=== PATIENT | male | born 1965 | race Caucasian/White ===

== ENCOUNTER 2017-03-30 07:27 | Emergency (ER) | payer MEDICARE ==
[2017-03-30 07:37] VITALS: RESP 20
[2017-03-30] MEDS ORDERED: KETOROLAC 60 MG/2 ML VIAL IM STA (07:52)
[2017-03-30] MEDS ORDERED: MORPHINE SULFATE 10 MG/ML SYRINGE IM STA (07:52)
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
--- NOTE | 2017-03-30 08:36 | XR ---
EXAMINATION TYPE: XR chest 2V DATE OF EXAM: 03/30/2017 8:30 AM COMPARISON: NONE HISTORY: Fall with subsequent left arm and rib pain. TECHNIQUE: Frontal and lateral views of the chest are obtained. FINDINGS: There is no focal air space opacity, pleural effusion, or pneumothorax seen. The cardiac silhouette size is within normal limits. There is no displaced fracture. IMPRESSION: 1. No acute cardiopulmonary process. 2. No displaced rib fracture visualized.
[2017-03-30 09:33] VITALS: BP 132/77; PULSE 84; TEMP 97.7
== END 2017-03-30 09:20 | disposition home or self-care (01) ==
LOC: EC 07:27
DX: R07.81 Pleurodynia (principal); I10 Essential (primary) hypertension; E78.5 Hyperlipidemia, unspecified; E11.9 Type 2 diabetes mellitus without complications; Z87.891 Personal history of nicotine dependence; Z79.84 Long term (current) use of oral hypoglycemic drugs; Z79.82 Long term (current) use of aspirin; Z79.899 Other long term (current) drug therapy; W17.89XA Other fall from one level to another, initial encounter
CPT/HCPCS: 71020; 99283; 96372 ×2; J2270; J1885

== ENCOUNTER 2017-06-03 17:00 | Emergency (ER) | payer OTHER, MEDICARE ==
[2017-06-03 17:12] VITALS: RESP 18
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
[2017-06-03 18:13] VITALS: BP 118/75; PULSE 82; TEMP 97.9
--- NOTE | 2017-06-03 18:15 | XR ---
Cervical spine HISTORY: Trauma and pain 4 views of the cervical spine Cervical vertebral bodies show preserved height, alignment, and bone mineralization. Prevertebral sof t tissues and disc spaces are maintained. Spondylolysis present at C6-7. C7-T1 not well seen. Carotid artery calcification suspected. IMPRESSION: No acute abnormalities evident, limitations at C7-T1.
--- NOTE | 2017-06-03 18:16 | XR ---
Left clavicle HISTORY: Trauma and pain 2 views of the left clavicle No comparisons Bone mineralization is maintained. Alignment is normal. Left lung apex as visualized is normal IMPRESSION: No fracture or dislocation.
--- NOTE | 2017-06-03 18:17 | XR ---
EXAMINATION TYPE: XR chest 2V DATE OF EXAM: 06/03/2017 COMPARISON: Prior chest x-ray 03/30/2017 HISTORY: Pain, trauma TECHNIQUE: Frontal and lateral views of the chest are obtained. FINDINGS: There is no focal air space opacity, pleural effusion, or pneumothorax seen. The cardiac silhouette size is within normal limits. The osseous structures are intact. IMPRESSION: No acute cardiopulmonary process.
== END 2017-06-03 19:00 | disposition home or self-care (01) ==
LOC: EC 17:00
DX: M54.2 Cervicalgia (principal); M25.512 Pain in left shoulder; E78.5 Hyperlipidemia, unspecified; I10 Essential (primary) hypertension; E11.9 Type 2 diabetes mellitus without complications; F32.9 Major depressive disorder, single episode, unspecified; F17.200 Nicotine dependence, unspecified, uncomplicated; Z79.84 Long term (current) use of oral hypoglycemic drugs; Z79.899 Other long term (current) drug therapy; V43.52XA Car driver injured in collision with other type car in traffic accident, initial encounter; Y92.410 Unspecified street and highway as the place of occurrence of the external cause; Y93.89 Activity, other specified
CPT/HCPCS: 71020; 72050; 99284

== ENCOUNTER 2018-02-23 10:43 | Observation (INO) | payer MEDICARE, OTHER ==
[2018-02-23 11:36] VITALS: RESP 16
[2018-02-23 11:46] VITALS: BMI 28.5
[2018-02-23] MEDS: KETOROLAC 30 MG/ML 1 ML VIAL IVP PRN ×2 (12:15→19:34)
[2018-02-23] MEDS: SODIUM CHLORIDE 0.9% 1,000 ML IV SCH (14:42)
[2018-02-23] MEDS: LINAGLIPTIN 5 MG TABLET PO SCH (14:51)
[2018-02-23] MEDS: LISINOPRIL 20 MG TAB PO SCH (14:51)
[2018-02-23] MEDS: MULTIVITAMINS, THERA 1 EACH TAB PO SCH (14:51)
[2018-02-23] MEDS: buPROPion XL 150 MG TAB.ER.24H PO SCH (14:51)
[2018-02-23] MEDS: ASPIRIN 81 MG PO SCH (14:51)
[2018-02-23 15:13] LABS: Basophils # (A) 0.1 k/uL (0-0.2); Basophils % (A) 1 %; Eosinophils # (A) 0.1 k/uL (0-0.7); Eosinophils % (A) 1 %; HCT 39.6 % (39.0-53.0); HGB 13.6 gm/dL (13.0-17.5); Lymphocytes # (A) 1.6 k/uL (1.0-4.8); Lymphocytes % (A) 12 %; MCH 30.4 pg (25.0-35.0); MCHC 34.5 g/dL (31.0-37.0); MCV 88.3 fL (80.0-100.0); Mean Platelet Volume 6.7; Monocytes # (A) 0.7 k/uL (0-1.0); Monocytes % (A) 6 %; Neutrophils # (A) 10.3 k/uL (1.3-7.7); Neutrophils % (A) 80 %; Platelet Count 270 k/uL (150-450); RBC 4.48 m/uL (4.30-5.90); RDW 12.3 % (11.5-15.5); WBC 12.9 k/uL (3.8-10.6)
[2018-02-23 15:23] LABS: ALT 46 U/L (21-72); AST 37 U/L (17-59); Albumin 3.9 g/dL (3.5-5.0); Alkaline Phosphatase 71 U/L (38-126); Anion Gap 11 mmol/L; Blood Urea Nitrogen 17 mg/dL (9-20); Calcium 9.5 mg/dL (8.4-10.2); Carbon Dioxide 24 mmol/L (22-30); Chloride 100 mmol/L (98-107); Glucose 303 mg/dL (74-99); Sodium 135 mmol/L (137-145); Total Bilirubin 0.5 mg/dL (0.2-1.3); Total Protein 6.3 g/dL (6.3-8.2)
[2018-02-23 16:45] LABS: Appearance,Urine Clear (Clear); Bacteria,Urine Rare /hpf; Bilirubin,Urine Negative (Negative); Blood,Urine Large (Negative); Color,Urine Yellow; Glucose,Urine (UA) 4+ (Negative); Hyaline Casts,Urine 9 /lpf (0-2); Ketones,Urine Trace (Negative); Leukocyte Esterase,Urine Negative (Negative); Mucus,Urine Few /hpf; Nitrite,Urine Negative (Negative); Protein,Urine 1+ (Negative); RBC,Urine >182 /hpf (0-5); Specific Gravity,Urine 1.017 (1.001-1.035); Squamous Epithelial Cell,Urine 1 /hpf (0-4); Urobilinogen,Urine <2.0 mg/dL (<2.0); WBC,Urine 19 /hpf (0-5)
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
[2018-02-23 17:26] LABS: Glucose,Whole Blood 241 mg/dL (75-99)
[2018-02-23] MEDS ORDERED: metFORMIN 500 MG TAB PO SCH (17:30)
[2018-02-23 20:14] LABS: Glucose,Whole Blood 265 mg/dL (75-99)
[2018-02-23] MEDS: metFORMIN 500 MG TAB PO SCH (20:33)
[2018-02-23] MEDS ORDERED: ATORVASTATIN 20 MG TAB PO SCH (21:00)
[2018-02-23 21:51] LABS: Hemoglobin A1C 8.8 % (4.0-6.0)
[2018-02-24] MEDS: SODIUM CHLORIDE 0.9% 1,000 ML IV SCH (02:53)
[2018-02-24] MEDS: KETOROLAC 30 MG/ML 1 ML VIAL IVP PRN (05:26)
[2018-02-24 06:41] LABS: Glucose,Whole Blood 189 mg/dL (75-99)
[2018-02-24 07:24] VITALS: BP 126/77; PULSE 72; TEMP 97.6
[2018-02-24] MEDS: ASPIRIN 81 MG PO SCH (09:55)
[2018-02-24] MEDS: buPROPion XL 150 MG TAB.ER.24H PO SCH (09:55)
[2018-02-24] MEDS: LISINOPRIL 20 MG TAB PO SCH (09:56)
[2018-02-24] MEDS: LINAGLIPTIN 5 MG TABLET PO SCH (09:56)
[2018-02-24] MEDS: metFORMIN 500 MG TAB PO SCH (09:56)
[2018-02-24 11:14] LABS: Glucose,Whole Blood 215 mg/dL (75-99)
[2018-02-24] MEDS: MULTIVITAMINS, THERA 1 EACH TAB PO SCH (12:19)
== END 2018-02-24 12:44 | disposition home or self-care (01) ==
LOC: 5MS5E 10:53 → INTOOBSV 10:53
PROVIDERS: ADMIT Family Medicine; ATTEND Family Medicine
DX: R39.15 Urgency of urination (principal); R10.9 Unspecified abdominal pain; N50.811 Right testicular pain; N20.1 Calculus of ureter; E11.9 Type 2 diabetes mellitus without complications; E78.5 Hyperlipidemia, unspecified; I10 Essential (primary) hypertension; F32.9 Major depressive disorder, single episode, unspecified; F17.200 Nicotine dependence, unspecified, uncomplicated; Z90.01 Acquired absence of eye; Z89.021 Acquired absence of right finger(s); Z87.828 Personal history of other (healed) physical injury and trauma; Z80.9 Family history of malignant neoplasm, unspecified; Z79.899 Other long term (current) drug therapy; Z79.84 Long term (current) use of oral hypoglycemic drugs; Z79.82 Long term (current) use of aspirin
CPT/HCPCS: 96376 ×2; 96374; 80053; 85025; 81001; 83036; G0378 ×3; G0379; J1885 ×2

== ENCOUNTER → 2018-03-26 | Outpatient (CLI) | payer MEDICARE ==
[2018-03-26 12:41] LABS: Blood Urea Nitrogen 14 mg/dL (9-20)
--- NOTE | 2018-03-26 13:36 | CT ---
EXAMINATION TYPE: CT brain w con DATE OF EXAM: 03/26/2018 COMPARISON: NONE HISTORY: Patient poor historian. TIA. CT DLP: 802.3 mGycm Automated exposure control for dose reduction was used. CONTRAST: CT scan of the head is performed with IV Contrast, patient injected with 100 mL of Isovue 300. FINDINGS: There is no abnormal enhancing mass or midline shift identified. The ventricles and sulci are within normal limits in size. The globes are intact and the visualized sinuses are clear. Area of low atte nuation involving the right frontal lobe inferiorly suggestive of encephalomalacia. Mild generalized degenerative change with a greater frontal lobe component. No enhancing masses. IMPRESSION: Area of low attenuation involving the right posterior and inferior frontal lobe suggestive of previou s ischemia. Correlate with MRI.
--- NOTE | 2018-03-26 14:36 | US ---
EXAMINATION TYPE: US carotid duplex BILAT DATE OF EXAM: 03/26/2018 COMPARISON: NONE CLINICAL HISTORY: G45.9 Transient Cerebral Ischemic Attack. EXAM MEASUREMENTS: RIGHT: Peak Systolic Velocity (PSV) cm/sec ----- Right CCA: 104.6 ----- Right ICA: 80.1 ----- Right ECA: 91.1 ICA/CCA ratio: 0.8 RIGHT: End Diastole cm/sec ----- Right CCA: 23.1 ----- Right ICA: 24.1 ----- Right ECA: 12.0 LEFT: Peak Systolic Velocity (PSV) cm/sec ----- Left CCA: 114.5 ----- Left ICA: 114.5 ----- Left ECA: 94.3 ICA/CCA ratio: 1.0 LEFT: End Diastole cm/sec ----- Left CCA: 28.9 ----- Left ICA: 22.5 ----- Left ECA: 15.4 VERTEBRALS (direction of flow): Right Vertebral: Antegrade Left Vertebral: Antegrade Rhythm: Intermittent arrhythmia No significant stenosis seen, no elevated velocities. IMPRESSION: 1. Mild bilateral grayscale plaquing with no hemodynamically significant stenosis within either carot id arterial system is visualized. 2. Incidentally noted cardiac arrhythmia. Correlate with EKG.
--- NOTE | 2018-03-27 12:02 | ECHOF ---
Referral Reason:G45.9 Transient Cerebral Ischemic Attack MEASUREMENTS -------- HEIGHT: 175.3 cm WEIGHT: 76.2 kg BP: 114/68 RVIDd: 2.7 cm (< 3.3) IVSd: 1.1 cm (0.6 - 1.1) LVIDd: 3.7 cm (3.9 - 5.3) LVPWd: 1.0 cm (0.6 - 1.1) IVSs: 1.4 cm LVIDs: 2.4 cm LVPWs: 1.5 cm LA Diam: 3.2 cm (2.7 - 3.8) LAESV Index (A-L): 17.59 ml/m Ao Diam: 2.9 cm (2.0 - 3.7) AV Cusp: 2.1 cm (1.5 - 2.6) EPSS: 0.5 cm MV E Rocco: 0.72 m/s MV DecT: 240 ms MV A Rocco: 0.95 m/s MV E/A Ratio: 0.76 MV EF SLOPE: 36.72 mm/s (70 - 150) MV EXCURSION: 1.11 cm (> 18.000) FINDINGS -------- Sinus rhythm. This was a technically good study. The left ventricular size is normal. There is borderline concentric left ventricular hypertrophy. Overall left ventricular systolic function is normal with, an EF between 60 - 65 %. The right ventricle is normal in size. Normal LA size by volume 22+/-6 ml/m2. The right atrium is normal in size. The aortic valve is trileaflet and appears structurally normal. The mitral valve is normal. The tricuspid valve appears structurally normal. There is no pulmonic regurgitation present. The aortic root size is normal. Normal inferior vena cava with normal inspiratory collapse consistent with estimated right atrial pre ssure of 5 mmHg. There is no pericardial effusion. CONCLUSIONS -------- 1. Sinus rhythm. 2. This was a technically good study. 3. The left ventricular size is normal. 4. There is borderline concentric left ventricular hypertrophy. 5. Overall left ventricular systolic function is normal with, an EF between 60 - 65 %. 6. The right ventricle is normal in size. 7. Normal LA size by volume 22+/-6 ml/m2. 8. The right atrium is normal in size. 9. The aortic valve is trileaflet and appears structurally normal. 10. The mitral valve is normal. 11. The tricuspid valve appears structurally normal. 12. There is no pulmonic regurgitation present. 13. The aortic root size is normal. 14. Normal inferior vena cava with normal inspiratory collapse consistent with estimated right atrial pressure of 5 mmHg. 15. There is no pericardial effusion. FIRE SAFETY INSPECTOR: BRENNAN Kaiser
== END | disposition home or self-care (01) ==
LOC: RADCTMAIN 11:55
PROVIDERS: ATTEND Family Medicine
DX: I65.23 Occlusion and stenosis of bilateral carotid arteries (principal); I51.7 Cardiomegaly; R90.89 Other abnormal findings on diagnostic imaging of central nervous system
CPT/HCPCS: 93306; 82565; 84520; 93880; 70460; 36415; Q9967

== ENCOUNTER 2018-07-13 16:37 | Emergency (ER) | payer MEDICARE ==
[2018-07-13 17:32] VITALS: BP 112/80; PULSE 76; RESP 80; TEMP 97.8
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
== END 2018-07-13 18:32 | disposition home or self-care (01) ==
LOC: EC 16:37
DX: B37.0 Candidal stomatitis (principal); R22.1 Localized swelling, mass and lump, neck; J02.9 Acute pharyngitis, unspecified; E11.9 Type 2 diabetes mellitus without complications; E78.5 Hyperlipidemia, unspecified; I10 Essential (primary) hypertension; F32.9 Major depressive disorder, single episode, unspecified; F17.200 Nicotine dependence, unspecified, uncomplicated; Z79.82 Long term (current) use of aspirin; Z79.84 Long term (current) use of oral hypoglycemic drugs; Z79.899 Other long term (current) drug therapy
CPT/HCPCS: 99283

== ENCOUNTER 2018-07-14 19:14 | Emergency (ER) | payer MEDICARE ==
[2018-07-14 19:40] VITALS: RESP 18
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
--- NOTE | 2018-07-14 21:42 | CT ---
EXAMINATION TYPE: CT soft tissue neck wo con DATE OF EXAM: 07/14/2018 HISTORY: Sore throat. COMPARISON: None CT DLP: 518 mGycm. Automated Exposure Control for Dose Reduction was Utilized. TECHNIQUE: CT scan of the neck is performed with axial, coronal and sagittal reformatted images revi ewed. FINDINGS: Airway: No gross abnormality seen. Aerodigestive system: No focal mass or mass effect effect upon the airway. The parapharyngeal spaces bilaterally are negative. Lymph belkys stations: No cervical adenopathy. Salivary glands and ducts: No gross abnormality seen. Carotid/Vascular Structures: Relatively mild bilateral carotid nonaneurysmal atherosclerotic calcific ations noted. Without IV contrast no further characterization can be made. Osseous Structures: Unremarkable. IMPRESSION: No significant abnormality is seen.
[2018-07-14] MEDS ORDERED: SODIUM CHLORIDE 0.9% 1,000 ML IV STA (22:56)
[2018-07-14 23:38] VITALS: BP 148/78; PULSE 78; TEMP 98.8
[2018-07-15 14:12] LABS: HIV AB P24 Non-Reactive (Non-Reactive); HIV P24 AG Non-Reactive (Non-Reactive)
== END 2018-07-14 23:40 | disposition home or self-care (01) ==
LOC: EC 19:14
DX: B37.0 Candidal stomatitis (principal); E11.9 Type 2 diabetes mellitus without complications; E78.5 Hyperlipidemia, unspecified; I10 Essential (primary) hypertension; F32.9 Major depressive disorder, single episode, unspecified; F17.200 Nicotine dependence, unspecified, uncomplicated; Z79.82 Long term (current) use of aspirin; Z79.84 Long term (current) use of oral hypoglycemic drugs; Z79.899 Other long term (current) drug therapy; Z53.8 Procedure and treatment not carried out for other reasons
CPT/HCPCS: 36415; 70490; 87390; 99283

== ENCOUNTER 2018-07-16 10:31 | Inpatient (IN) | payer MEDICARE ==
[2018-07-16] MEDS ORDERED: SODIUM CHLORIDE 0.9% 1,000 ML IV STA ×2 (11:18)
[2018-07-16] MEDS ORDERED: FLUCONAZOLE IN NACL,ISO-OSM 200 MG in SALINE 1 50ML.BAG IVPB STA (11:22)
[2018-07-16 12:00] LABS: Basophils # (A) 0.1 k/uL (0-0.2); Basophils % (A) 1 %; Eosinophils # (A) 0.3 k/uL (0-0.7); Eosinophils % (A) 2 %; HGB 16.9 gm/dL (13.0-17.5); Lymphocytes # (A) 3.3 k/uL (1.0-4.8); Lymphocytes % (A) 20 %; MCH 30.1 pg (25.0-35.0); MCHC 32.5 g/dL (31.0-37.0); MCV 92.6 fL (80.0-100.0); Mean Platelet Volume 6.5; Monocytes # (A) 0.9 k/uL (0-1.0); Monocytes % (A) 6 %; Neutrophils # (A) 11.4 k/uL (1.3-7.7); Neutrophils % (A) 70 %; Platelet Count 364 k/uL (150-450); RBC 5.62 m/uL (4.30-5.90); RDW 13.2 % (11.5-15.5); VBG PH 7.32 (7.31-7.41); WBC 16.2 k/uL (3.8-10.6)
[2018-07-16 12:08] LABS: Albumin 5.5 g/dL (3.5-5.0); Calcium 11.3 mg/dL (8.4-10.2); Potassium 5.1 mmol/L (3.5-5.1); Total Bilirubin 0.7 mg/dL (0.2-1.3); Total Protein 9.3 g/dL (6.3-8.2)
[2018-07-16] MEDS ORDERED: cefTRIAXone 2,000 MG in SODIUM CHLORIDE 0.9% 100 ML IVPB STA (12:18)
[2018-07-16] MEDS ORDERED: cefTRIAXone IN SWFI 2,000 MG/20 ML SYRINGE IVP STA (12:19)
[2018-07-16 12:37] LABS: Appearance,Urine Cloudy (Clear); Bilirubin,Urine 1+ (Negative); Blood,Urine Negative (Negative); Color,Urine Dark Yellow; Glucose,Urine (UA) Negative (Negative); Hyaline Casts,Urine 37 /lpf (0-2); Ketones,Urine 1+ (Negative); Leukocyte Esterase,Urine Negative (Negative); Mucus,Urine Many /hpf; Nitrite,Urine Negative (Negative); PH, Urine 5.5 (5.0-8.0); Protein,Urine 2+ (Negative); RBC,Urine 2 /hpf (0-5); WBC,Urine 3 /hpf (0-5)
--- NOTE | 2018-07-16 12:37 | XR ---
EXAMINATION TYPE: XR chest 2V DATE OF EXAM: 07/16/2018 COMPARISON: 06/03/2017 TECHNIQUE: PA and lateral views submitted. HISTORY: Pain FINDINGS: The lungs are clear and there is no pneumothorax, pleural effusion, or focal pneumonia. Calcificati on the abdomen may be related to granuloma. One in the right costophrenic angle could represent chron ic pleural thickening. Degenerative change of the spine. No overt failure. IMPRESSION: 1. No acute process.
--- NOTE | 2018-07-16 12:44 | XR ---
EXAMINATION TYPE: XR KUB DATE OF EXAM: 07/16/2018 COMPARISON: NONE HISTORY: Pain TECHNIQUE: One view abdominal series FINDINGS: The osseous structures are intact. The bowel gas pattern is nonspecific. Calcification in the right abdomen could be related to granuloma. Pleural thickening on the right. Arthropathy of the hips not ed. 2 mm calcification overlying the mid right kidney. IMPRESSION: 1. Nonspecific abdomen. 2. Questionable right mid renal calculus.
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
[2018-07-16] MEDS ORDERED: SODIUM CHLORIDE 0.9% 1,000 ML IV ONE (13:37)
[2018-07-16] MEDS: metFORMIN 500 MG TAB PO SCH (17:57)
[2018-07-16] MEDS: NYSTATIN 100,000 UNIT/ML SUSP 500,000 UNIT/5 ML CUP PO SCH ×2 (17:57→20:27)
[2018-07-16] MEDS: ATORVASTATIN 20 MG TAB PO SCH (20:27)
[2018-07-16] MEDS: buPROPion SR 150 MG TABLET.ER PO SCH (20:27)
[2018-07-16 21:26] LABS: Glucose,Whole Blood 105 mg/dL (75-99)
[2018-07-16 21:47] LABS: Hemoglobin A1C 6.6 % (4.0-6.0)
[2018-07-17] MEDS: HYDROcodone/APAP 5-325MG 1 EACH TAB PO PRN ×2 (00:34→17:32)
[2018-07-17 01:46] LABS: HIV 1 AB Non-Reactive (Non-Reactive); HIV AB P24 Non-Reactive (Non-Reactive); HIV P24 AG Non-Reactive (Non-Reactive)
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
[2018-07-17 07:19] LABS: Glucose,Whole Blood 105 mg/dL (75-99)
[2018-07-17] MEDS: metFORMIN 500 MG TAB PO SCH ×2 (08:30→17:32)
[2018-07-17] MEDS: FLUCONAZOLE IN NACL,ISO-OSM 200 MG in SALINE 1 100ML.BAG IVPB SCH (08:30)
[2018-07-17] MEDS: buPROPion SR 150 MG TABLET.ER PO SCH ×2 (08:30→20:11)
[2018-07-17] MEDS: ASPIRIN 325 MG TAB PO SCH (08:30)
[2018-07-17] MEDS: LISINOPRIL 20 MG TAB PO SCH (08:30)
[2018-07-17] MEDS: NYSTATIN 100,000 UNIT/ML SUSP 500,000 UNIT/5 ML CUP PO SCH ×4 (08:31→20:12)
[2018-07-17 10:11] LABS: Anion Gap 9 mmol/L; Blood Urea Nitrogen 25 mg/dL (9-20); Calcium 9.2 mg/dL (8.4-10.2); Carbon Dioxide 21 mmol/L (22-30); Chloride 108 mmol/L (98-107); Glucose 151 mg/dL (74-99); Potassium 4.6 mmol/L (3.5-5.1); Sodium 138 mmol/L (137-145)
[2018-07-17 10:16] LABS: Basophils # (A) 0.1 k/uL (0-0.2); Basophils % (A) 1 %; Eosinophils # (A) 0.2 k/uL (0-0.7); Eosinophils % (A) 2 %; HCT 41.4 % (39.0-53.0); Lymphocytes # (A) 2.4 k/uL (1.0-4.8); Lymphocytes % (A) 23 %; MCH 29.5 pg (25.0-35.0); MCHC 31.5 g/dL (31.0-37.0); MCV 93.5 fL (80.0-100.0); Mean Platelet Volume 6.6; Monocytes # (A) 0.6 k/uL (0-1.0); Monocytes % (A) 6 %; Neutrophils # (A) 6.9 k/uL (1.3-7.7); Neutrophils % (A) 67 %; Platelet Count 250 k/uL (150-450); RBC 4.43 m/uL (4.30-5.90); RDW 13.2 % (11.5-15.5); WBC 10.3 k/uL (3.8-10.6)
[2018-07-17 10:21] LABS: HGB 13.1 gm/dL (13.0-17.5)
[2018-07-17 12:03] LABS: Glucose,Whole Blood 89 mg/dL (75-99)
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
[2018-07-17 17:03] LABS: Glucose,Whole Blood 102 mg/dL (75-99)
--- NOTE | 2018-07-17 17:17 | CT ---
EXAMINATION TYPE: CT soft tissue neck w con DATE OF EXAM: 07/17/2018 5:06 PM COMPARISON: 07/14/2018 HISTORY: Neck swelling CT DLP: 554 mGycm Automated exposure control for dose reduction was used. CONTRAST: CT scan of the neck is performed following with IV Contrast, patient injected with 100 mL of Isovue 3 00. Axial images are obtained, coronal and sagittal reformatted images are reviewed. FINDINGS: There is normal branching pattern of the great vessels. There is bilateral patency of the carotid and vertebral arteries. There is patency of the jugular veins. Epiglottis appears normal. Submandibular salivary glands appear normal. Parotid glands are symmetric. There is fairly normal aeration of the v isualized paranasal sinuses. I see no bony destructive process. The tonsils and adenoids appear darius l. Epiglottis is normal. Subglottic trachea appears normal. There is no evidence of pharyngeal mass. There is a left-sided submandibular lymph node that measures 12 mm. There is spurring at C6-7 anterio rly. There is no pathologic enhancement. IMPRESSION: No significant abnormality. No adverse change compared to recent exam of 07/14/2018.
--- NOTE | 2018-07-17 17:53 | PN ---
PROGRESS NOTE DATE OF SERVICE: 07/17/2018. REASON FOR FOLLOW UP: Extensive oral candidiasis. INTERVAL HISTORY: The patient is currently afebrile. He is feeling slightly better. His sore throat has slightly improved. He is able to swallow some of the soft and clear liquid diet. Denies having any difficulty. Denies having any chest pain, shortness of breath or cough. No abdominal pain or any diarrhea. The patient did mention that he was bitten by a mice about 2 weeks ago on his right hand. Currently there is no evidence of any swelling or redness or lymphangitis. EXAMINATION: Blood pressure is 93/53 with a pulse of 72, temperature 98.1. He is 96% on room air. General description is a middle aged male up in the bed in no distress. HEENT examination: Oral thrush has slightly decreased in intensity. Neck trachea central. No lymphadenopathy. Lungs unlabored breathing. Clear to auscultation anteriorly. Heart S1, S2. Regular rate and rhythm. Abdomen soft, no tenderness. Right hand site of the mice bite, there is no evidence of any wound or cellulitis. LABS: Hemoglobin 13.1, white count normalized to 10.3, BUN of 25, creatinine 0.81. HIV testing came back to be negative. DIAGNOSTIC IMPRESSION AND PLAN: 1. Patient admitted to the hospital with extensive oropharyngeal candidiasis, the risk factors could include uncontrolled diabetes mellitus. The patient seemed to have responded to the fact that his white count has normalized and feeling slightly better. The patient is currently on IV Diflucan that will continue with the addition of nystatin swish and swallow. May benefit from an EGD to see the extent of his oropharyngeal candidiasis. His HIV testing was negative. 2. The patient did report mice bite on his hand, currently his clinical features not going with any disease that the usual transmitted by rodents and rabies not one of them as much reported by the CDC to be one of the normal bite at risks for rabies transmission. We will continue to monitor the patient closely. His questions were answered. MMODL / IJN: [id number] /
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
[2018-07-17] MEDS: ATORVASTATIN 20 MG TAB PO SCH (20:11)
[2018-07-17 21:22] LABS: Glucose,Whole Blood 105 mg/dL (75-99)
--- NOTE | 2018-07-18 07:00 | PN ---
PROGRESS NOTE SUBJECTIVE: White male who has severe oropharyngeal candidiasis. I am going to discharge home today on oral Diflucan as he has been cleared by Infectious Disease. He is able to swallow at this time. HIV tests are pending. Cardiovascular S1-S2. Lungs clear. swelling in upper airways. HIV tests were all negative. Urine is negative. Glucose 150, BUN , creatinine 0.8. ASSESSMENT: Oropharyngeal candidiasis. EGD. CT scan of his neck CT shows no significant abnormality. He will be discharged home to follow up as an outpatient. On oral Diflucan for a week. MMODL / IJN: [id number] /
[2018-07-18 07:19] LABS: Glucose,Whole Blood 100 mg/dL (75-99)
[2018-07-18] MEDS: metFORMIN 500 MG TAB PO SCH ×2 (07:55→17:09)
[2018-07-18] MEDS: NYSTATIN 100,000 UNIT/ML SUSP 500,000 UNIT/5 ML CUP PO SCH ×4 (07:56→20:28)
[2018-07-18] MEDS: LISINOPRIL 20 MG TAB PO SCH (07:56)
[2018-07-18] MEDS: buPROPion SR 150 MG TABLET.ER PO SCH ×2 (07:56→20:28)
[2018-07-18] MEDS: ASPIRIN 325 MG TAB PO SCH (07:56)
[2018-07-18] MEDS: FLUCONAZOLE IN NACL,ISO-OSM 200 MG in SALINE 1 100ML.BAG IVPB SCH (07:58)
[2018-07-18] MEDS: HYDROcodone/APAP 5-325MG 1 EACH TAB PO PRN ×2 (10:45→17:08)
[2018-07-18 11:59] LABS: Glucose,Whole Blood 96 mg/dL (75-99)
--- NOTE | 2018-07-18 13:42 | P.PN ---
Subjective Progress Note Date: 07/18/18 The patient is a 53-year-old male who is sitting up at bedside with family at bedside. He reports pain particular with swallowin. Three weeks ago he had molar extraction along the left lower jaw consistent also with his area of pain. He reports "it hurts more in my mouth and tongue." His family member also confirms he is a diabetic who also smokes and has not been following up with his recommended care. Patient has findings of oral thrush and has noted some improvement with swallowing. He is currently obtaining swish and swallow treatment. Objective - Vital Signs Vital signs: Vital Signs Temp 97.6 F 07/18/18 07:00 Pulse 71 07/18/18 07:00 Resp 18 07/18/18 07:00 BP 98/54 07/18/18 07:00 Pulse Ox 99 07/18/18 07:00 Intake & Output 07/17/18 07/18/18 07/18/18 18:59 06:59 18:59 Intake Total 100 Balance 100 Weight 77.111 kg Intake: Oral 100 Other: Voiding Method Toilet # Voids 4 1 # Bowel Movements 1 - Exam GENERAL: Well-developed pleasant male in no acute distress. HEENT: No scleral icterus. Extraocular movements grossly intact. Moist buccal mucosa. NECK: Supple without lymphadenopathy. CHEST: Unlabored respirations. Equal bilateral excursions. Tender along the left chest wall CARDIOVASCULAR: Regular rate regular rhythm rhythm. Distal 2+ pulses. ABDOMEN: Soft, nontender, non-distended MUSCULOSKELETAL: No clubbing, cyanosis, or edema. NEURO : No focal or lateralizing signs. Cranial nerves II-12 within normal limits. PSYCH: Alert and oriented to person, place and time. SKIN: Well perfused. Good skin turgor. - Labs CBC & Chem 7: 07/17/18 09:26 07/17/18 09:26 Labs: Abnormal Lab Results - Last 24 Hours (Table) 07/17/18 07/17/18 07/18/18 Range/Units 16:59 21:10 07:15 POC Glucose (mg/dL) 102 H 105 H 100 H (75-99) mg/dL Microbiology - Last 24 Hours (Table) 07/16/18 19:00 Urine Culture - Final Urine,Voided 07/16/18 15:13 Blood Culture - Preliminary Blood No Growth after 24 hours Assessment and Plan (1) Dysphagia Current Visit: Yes Status: Acute Code(s): R13.10 - DYSPHAGIA, UNSPECIFIED SNOMED Code(s): 62472927 (2) Pharyngitis Current Visit: Yes Status: Acute Code(s): J02.9 - ACUTE PHARYNGITIS, UNSPECIFIED SNOMED Code(s): 889790368 (3) Oral thrush Current Visit: No Status: Acute Code(s): B37.0 - CANDIDAL STOMATITIS SNOMED Code(s): 40435061 Plan: 1. Clinically, his symptoms has improved. 2. Recommend salt water gargle with recent history of molar extraction. He has higher risk for slow wound healing with his multiple medical comorbidities including medical noncompliance to his dental care. 3. Patient was described with his index surgeon possible upper endoscopy as well
[2018-07-18 17:31] LABS: Glucose,Whole Blood 97 mg/dL (75-99)
[2018-07-18] MEDS: ATORVASTATIN 20 MG TAB PO SCH (20:28)
[2018-07-18 20:33] LABS: Glucose,Whole Blood 109 mg/dL (75-99)
[2018-07-19 07:14] LABS: Glucose,Whole Blood 95 mg/dL (75-99)
[2018-07-19] MEDS: FLUCONAZOLE IN NACL,ISO-OSM 200 MG in SALINE 1 100ML.BAG IVPB SCH (08:03)
[2018-07-19] MEDS: buPROPion SR 150 MG TABLET.ER PO SCH ×2 (08:04→19:45)
[2018-07-19] MEDS: NYSTATIN 100,000 UNIT/ML SUSP 500,000 UNIT/5 ML CUP PO SCH ×4 (08:04→21:09)
[2018-07-19] MEDS: ASPIRIN 325 MG TAB PO SCH (08:05)
[2018-07-19] MEDS: LISINOPRIL 20 MG TAB PO SCH (08:05)
[2018-07-19] MEDS: metFORMIN 500 MG TAB PO SCH ×2 (08:05→16:44)
[2018-07-19] MEDS: HYDROcodone/APAP 5-325MG 1 EACH TAB PO PRN ×3 (08:07→22:32)
[2018-07-19] MEDS ORDERED: Dulaglutide [Trulicity] 1.5 MG SQ SCH (09:00)
[2018-07-19 11:51] LABS: Glucose,Whole Blood 132 mg/dL (75-99)
--- NOTE | 2018-07-19 15:29 | P.PN ---
Subjective Progress Note Date: 07/19/18 The patient is a 53-year-old male who initially presented with troubles with swallowing. His swelling has improved. He reports most of his pain related to his recent molar extraction of the left lower mandible. He is eager to go home. Objective - Vital Signs Vital signs: Vital Signs Temp 97.6 F 07/19/18 15:00 Pulse 74 07/19/18 15:00 Resp 18 07/19/18 15:00 BP 128/72 07/19/18 15:00 Pulse Ox 99 07/19/18 15:00 Intake & Output 07/18/18 07/19/18 07/19/18 18:59 06:59 18:59 Intake Total 200 700 240 Balance 200 700 240 Intake: Oral 200 700 240 Other: # Voids 2 1 2 # Bowel Movements 0 0 - Exam GENERAL: Well-developed pleasant male in no acute distress. HEENT: No scleral icterus. Extraocular movements grossly intact. Moist buccal mucosa. Tender along the left mandibular angle. NECK: Supple without lymphadenopathy. CHEST: Unlabored respirations. Equal bilateral excursions. Tender along the left chest wall CARDIOVASCULAR: Regular rate regular rhythm rhythm. Distal 2+ pulses. ABDOMEN: Soft, nontender, non-distended MUSCULOSKELETAL: No clubbing, cyanosis, or edema. NEURO : No focal or lateralizing signs. Cranial nerves II-12 within normal limits. PSYCH: Alert and oriented to person, place and time. SKIN: Well perfused. Good skin turgor. - Labs CBC & Chem 7: 07/17/18 09:26 07/17/18 09:26 Labs: Abnormal Lab Results - Last 24 Hours (Table) 07/18/18 07/19/18 Range/Units 20:30 11:38 POC Glucose (mg/dL) 109 H 132 H (75-99) mg/dL Microbiology - Last 24 Hours (Table) 07/16/18 15:13 Blood Culture - Preliminary Blood No Growth after 48 hours Assessment and Plan (1) Dysphagia Current Visit: Yes Status: Acute Code(s): R13.10 - DYSPHAGIA, UNSPECIFIED SNOMED Code(s): 22704704 (2) Pharyngitis Current Visit: Yes Status: Acute Code(s): J02.9 - ACUTE PHARYNGITIS, UNSPECIFIED SNOMED Code(s): 522715659 (3) Oral thrush Current Visit: No Status: Acute Code(s): B37.0 - CANDIDAL STOMATITIS SNOMED Code(s): 32228627 (4) History of third molar tooth extraction Current Visit: Yes Status: Acute Code(s): K08.409 - PARTIAL LOSS OF TEETH, UNSPECIFIED CAUSE, UNSPECIFIED CLASS SNOMED Code(s): 88745790 (5) Mandibular pain Current Visit: Yes Status: Acute Code(s): R68.84 - JAW PAIN SNOMED Code(s) : 709973272 Plan: 1. I've recommended a follow-up with his dentist for his mandibular pain at the molar extraction site 2. Otherwise no further surgical intervention.
[2018-07-19 17:21] LABS: Glucose,Whole Blood 110 mg/dL (75-99)
[2018-07-19] MEDS ORDERED: DULAGLUTIDE 0.75 MG SQ SCH (19:00)
[2018-07-19] MEDS: ATORVASTATIN 20 MG TAB PO SCH (19:45)
[2018-07-19 20:38] LABS: Glucose,Whole Blood 137 mg/dL (75-99)
[2018-07-19] MEDS ORDERED: ACETAMINOPHEN TAB 325 MG TAB PO PRN (21:01)
[2018-07-20] MEDS ORDERED: SODIUM CHLORIDE 0.9% 500 ML IV ONE (05:14)
[2018-07-20] MEDS: HYDROcodone/APAP 5-325MG 1 EACH TAB PO PRN ×2 (05:20→14:31)
[2018-07-20] MEDS: SODIUM CHLORIDE 0.9% 1,000 ML IV SCH ×3 (06:08→22:44)
--- NOTE | 2018-07-20 06:42 | PN ---
PROGRESS NOTE DATE OF SERVICE: 07/19/2018. REASON FOR FOLLOW UP: Extensive oral thrush. INTERVAL HISTORY: The patient is afebrile. He is feeling slightly better. Still mentioned he did have sores on the right side of his tongue that are painful. Overall swelling has improved. Denies any chest pain, shortness of breath or cough. No abdominal pain or diarrhea. EXAMINATION: Blood pressure 128/72 with a pulse of 74. Temperature is 97.6. He is 99% on room air. General description is a middle aged male up in the bed in no distress. HEENT EXAMINATION: Oral thrush slightly decreased in intensity. LUNGS: Unlabored breathing. Clear to auscultation anteriorly. HEART: S1, S2. Regular rate and rhythm. ABDOMEN: Soft, no tenderness. LABS: Blood culture has been negative. DIAGNOSTIC IMPRESSION AND PLAN: Patient with extensive oropharyngeal thrush. The patient may benefit from an EGD to rule out deep extension and possible biopsy and to rule out any true colonization to resistant pathogen, to continue the patient on Diflucan and nystatin swish and swallow at this point. Continue supportive care. MMODL / IJN: [id number] /
[2018-07-20 07:20] LABS: Glucose,Whole Blood 128 mg/dL (75-99)
[2018-07-20] MEDS: metFORMIN 500 MG TAB PO SCH ×2 (07:56→18:04)
[2018-07-20] MEDS: NYSTATIN 100,000 UNIT/ML SUSP 500,000 UNIT/5 ML CUP PO SCH (07:56)
[2018-07-20] MEDS: ASPIRIN 325 MG TAB PO SCH (07:56)
[2018-07-20] MEDS: buPROPion SR 150 MG TABLET.ER PO SCH ×2 (07:56→22:44)
[2018-07-20] MEDS: FLUCONAZOLE IN NACL,ISO-OSM 200 MG in SALINE 1 100ML.BAG IVPB SCH (08:00)
[2018-07-20] MEDS: LISINOPRIL 20 MG TAB PO SCH (08:03)
--- NOTE | 2018-07-20 09:48 | PN ---
PROGRESS NOTE SUBJECTIVE: A 53-year-old white male who had hypotension last night 70-80 systolic. He is given a fluid bolus of 500 mL normal saline and IV at 125 mL an hour. He is feeling better today. He still has oropharyngeal candidiasis. He is scheduled for an EGD today. Awaiting Infectious Disease recommendation. He remains on IV Diflucan 100 mg a day. CARDIOVASCULAR: S1, S2. LUNGS: Clear. Sitting up, given appropriate answers. ASSESSMENT: 1. Diabetes mellitus. 2. Alcoholism. 3. Esophageal oropharyngeal candidiasis, not responding to treatment in a sufficient manner. Continue on Diflucan, oral nystatin, EGD, fluid rehydration. Further treatment based on EGD findings. MMODL / IJN: [id number] /
[2018-07-20 11:40] LABS: Basophils # (A) 0.1 k/uL (0-0.2); Basophils % (A) 1 %; Eosinophils # (A) 0.2 k/uL (0-0.7); Eosinophils % (A) 2 %; HCT 41.1 % (39.0-53.0); HGB 13.5 gm/dL (13.0-17.5); Lymphocytes # (A) 2.7 k/uL (1.0-4.8); Lymphocytes % (A) 28 %; MCH 30.3 pg (25.0-35.0); MCHC 32.8 g/dL (31.0-37.0); MCV 92.2 fL (80.0-100.0); Monocytes # (A) 0.9 k/uL (0-1.0); Monocytes % (A) 9 %; Neutrophils # (A) 5.6 k/uL (1.3-7.7); Neutrophils % (A) 58 %; Platelet Count 250 k/uL (150-450); RBC 4.46 m/uL (4.30-5.90); RDW 12.9 % (11.5-15.5); WBC 9.6 k/uL (3.8-10.6)
[2018-07-20 11:43] LABS: Anion Gap 10 mmol/L; Blood Urea Nitrogen 25 mg/dL (9-20); Calcium 9.9 mg/dL (8.4-10.2); Carbon Dioxide 21 mmol/L (22-30); Chloride 109 mmol/L (98-107); Glucose 92 mg/dL (74-99); Potassium 4.9 mmol/L (3.5-5.1); Sodium 140 mmol/L (137-145)
[2018-07-20 12:10] LABS: Glucose,Whole Blood 90 mg/dL (75-99)
[2018-07-20] MEDS ORDERED: LIDOCAINE 1% INJ 10MG/ML (20 ML MDV) ONE (12:38)
[2018-07-20] MEDS ORDERED: PROPOFOL 10 MG/ML 20 ML VIAL IV ONE (12:38)
[2018-07-20] MEDS ORDERED: IV FLUID CONTINUATION 1,000 ML IV ONE (12:39)
--- NOTE | 2018-07-20 13:07 | P.OP ---
Date of Procedure: 07/20/18 Preoperative Diagnosis: Nausea Epigastric pain Postoperative Diagnosis: Mild duodenitis Antral gastritis Antral ulcer No evidence of hilar hernia Esophagitis Procedure(s) Performed: EGD Anesthesia: MAC Surgeon: Eliot Martinez Pathology: other (Duodenum, antrum, esophagus) Condition: stable Disposition: PACU Description of Procedure: The patient's placed on the endoscopy table in the lateral position in the lateral position. He received IV sedation. The gastroscope placed oropharynx the scope was then placed into the esophagus and stomach. Scope was placed through the pylorus. The first and second portion of duodenum appeared mildly inflamed. A biopsies performed. Scope was then brought back through the antrum and there was evidence of gastritis. His was biopsied. There was a small antral ulcer. This was also biopsied. The scope was uxtroflexed and remainder stomach appeared normal. The GE junction was at 40 cm. The distal esophagus appeared mildly inflamed a biopsies performed. The proximal esophagus. Normal. Scope was withdrawn for patient.
[2018-07-20] MEDS: ANIDULAFUNGIN 200 MG in SODIUM CHLORIDE 0.9% 200 ML IVPB SCH (13:53)
[2018-07-20] MEDS: PANTOPRAZOLE 40 MG/10 ML VIAL IVP SCH (14:34)
[2018-07-20] MEDS: CLOTRIMAZOLE TROCHE 10 MG TROCHE MUCOUS MEM SCH ×3 (15:43→23:55)
[2018-07-20 17:16] LABS: Glucose,Whole Blood 98 mg/dL (75-99)
[2018-07-20 21:07] LABS: Glucose,Whole Blood 130 mg/dL (75-99)
[2018-07-20] MEDS: ATORVASTATIN 20 MG TAB PO SCH (22:44)
--- NOTE | 2018-07-20 22:48 | PN ---
PROGRESS NOTE DATE OF SERVICE: 07/20/2018 REASON FOR FOLLOWUP: Oropharyngeal candidiasis. INTERVAL HISTORY: The patient is afebrile. He has been complaining of pain on the left lateral side of his tongue with this ulceration, though his swelling has slightly improved. No abdominal pain. No nausea, vomiting or diarrhea. PHYSICAL EXAMINATION: Blood pressure 105/72 with a pulse of 86, temperature 97.3. He is 99% on room air. General description is a middle-aged male up in the bed in no distress. HEENT EXAMINATION: Oral thrush may be slightly improved. NECK: Trachea is central. No thyromegaly. LUNGS: Unlabored breathing. Clear to auscultation anteriorly. HEART: S1, S2. Regular rate and rhythm. ABDOMEN: Soft. No tenderness. LABS: Hemoglobin 13.5, white count 9.6 with a BUN of 25, creatinine 0.90. DIAGNOSTIC IMPRESSION AND PLAN: Patient admitted to hospital with extensive oropharyngeal candidiasis with significant thrush. Patient currently has been treated with Diflucan and Nystatin Swish and Swallow. He does have significant improvement; hence we will switch him over to Mycelex and Eraxis to cover for possible fluconazole-resistant surinder. Continue with supportive care. MMODL / IJN: [id number] /
[2018-07-20 23:06] VITALS: RESP 16; TEMP 97
[2018-07-21] MEDS: SODIUM CHLORIDE 0.9% 1,000 ML IV SCH ×2 (05:47→14:29)
[2018-07-21] MEDS: CLOTRIMAZOLE TROCHE 10 MG TROCHE MUCOUS MEM SCH ×2 (05:47→12:19)
[2018-07-21 05:53] VITALS: BP 133/73; PULSE 66
[2018-07-21 07:16] LABS: Glucose,Whole Blood 78 mg/dL (75-99)
[2018-07-21] MEDS: PANTOPRAZOLE 40 MG/10 ML VIAL IVP SCH (07:41)
[2018-07-21] MEDS: ASPIRIN 325 MG TAB PO SCH (07:42)
[2018-07-21] MEDS: metFORMIN 500 MG TAB PO SCH (07:42)
[2018-07-21] MEDS: buPROPion SR 150 MG TABLET.ER PO SCH (07:42)
[2018-07-21] MEDS: LISINOPRIL 20 MG TAB PO SCH (07:42)
--- NOTE | 2018-07-21 10:17 | P.PN ---
Subjective Progress Note Date: 07/21/18 53-year-old sitting up on the edge of the bed states anxious to be discharged. Patient was seen by surgical service and underwent an EGD in July 20 showed no evidence of hiatal hernia atrial gastritis atrial ulcer mild duodenitis tolerating diet Objective - Vital Signs Vital signs: Vital Signs Temp 97.0 F L 07/21/18 05:52 Pulse 66 07/21/18 05:52 Resp 16 07/21/18 05:52 BP 133/73 07/21/18 05:52 Pulse Ox 100 07/21/18 05:52 Intake & Output 07/20/18 07/21/18 07/21/18 18:59 06:59 18:59 Intake Total 630 480 Balance 630 480 Intake: IV 50 Oral 580 480 Other: Voiding Method Toilet # Voids 1 2 - Exam Physical exam 53-year-old sitting on edge the patient appears acute distress Lungs clear adequate air movement Heart S1-S2 audible regular Abdomen soft reports of nausea vomiting Extremities no edema - Labs CBC & Chem 7: 07/20/18 11:16 07/20/18 11:16 Labs: Abnormal Lab Results - Last 24 Hours (Table) 07/20/18 07/20/18 07/20/18 Range/Units 11:16 11:16 21:05 Chloride 109 H (98-107) mmol/L Carbon Dioxide 21 L (22-30) mmol/L BUN 25 H (9-20) mg/dL POC Glucose (mg/dL) 130 H (75-99) mg/dL Procalcitonin 0.12 H (0.02-0.09) ng/mL Microbiology - Last 24 Hours (Table) 07/16/18 15:13 Blood Culture - Preliminary Blood No Growth after 96 hours Assessment and Plan Assessment: impression Status post EGD for epigastric pain showed mild duodenitis, atrophic gastritis, atrial ulcer no evidence of a hiatal hernia Dysphagia Current Visit: Yes Status: Acute Code(s): R13.10 - DYSPHAGIA, UNSPECIFIED SNOMED Code(s): 12995153 ) Pharyngitis Current Visit: Yes Status: Acute Code(s): J02.9 - ACUTE PHARYNGITIS, UNSPECIFIED SNOMED Code(s): 355334363 Oral thrush Current Visit: No Status: Acute Code(s): B37.0 - CANDIDAL STOMATITIS SNOMED Code(s): 27379602 History of third molar tooth extraction Current Visit: Yes Status: Acute Code(s): K08.409 - PARTIAL LOSS OF TEETH, UNSPECIFIED CAUSE, UNSPECIFIED CLASS SNOMED Code(s): 93294094 Mandibular pain Current Visit: Yes Status: Acute Code(s): R68.84 - JAW PAIN SNOMED Code(s) : 674980958 The above impression and plan of care have been discussed and directed by signing physician. Ronit Mckinnon nurse practitioner acting as scribe for signing physician.
[2018-07-21] MEDS: ANIDULAFUNGIN 200 MG in SODIUM CHLORIDE 0.9% 200 ML IVPB SCH (12:19)
[2018-07-21 12:35] LABS: Glucose,Whole Blood 101 mg/dL (75-99)
--- NOTE | 2018-07-21 12:56 | PN ---
PROGRESS NOTE DATE OF SERVICE: 07/21/2018 REASON FOR FOLLOWUP: Thrush with oropharyngeal candidiasis. INTERVAL HISTORY: The patient is afebrile. The patient did mention he is feeling much better compared to yesterday. The patient did have biopsy and tolerated the procedure. The patient wants to go home. Denies having any chest pain or shortness of breath or cough. No difficulty swallowing or any diarrhea. PHYSICAL EXAMINATION: Blood pressure 133/73 with a pulse of 76, temperature 97, he is 100% on room air. General description is a middle-aged male, lying in bed in no distress. RESPIRATORY SYSTEM: Unlabored breathing. Clear to auscultation anteriorly. HEART: S1, S2. Regular rate and rhythm. ABDOMEN: Soft, no tenderness. Examination of the oral cavity of thrush with slight decreased intensity. LABS: No new labs have been obtained today. DIAGNOSTIC IMPRESSION/PLAN: Extensive thrush with oropharyngeal candidiasis. The patient seemed to have significant improvement in the last 24 hours after he was switched to , which was explained to the patient that he will possibly need IV antifungal to go home; however, the patient is refusing that and wants to be sent home on oral antifungal. The patient denies to switch over to to 100 mg twice a day for 2 weeks along with cultures and close outpatient followup. MMODL / IJN: [id number] /
--- NOTE | 2018-07-21 13:11 | PN ---
PROGRESS NOTE DISCHARGE SUMMARY PROGRESS NOTE His oral candidiasis has improved. His EGD shows antral ulcerations. He is getting cleared from Surgery for discharge home. He will follow up in my office next week. CARDIOVASCULAR: S1, S2. LUNGS: Clear. GI: Soft. HEMATOLOGY: Negative Homans. ASSESSMENT: 1. Esophageal candidiasis. 2. Dyslipidemia. 3. Diabetes mellitus. 4. Gastroesophageal reflux disease. 5. Esophageal candidiasis, unclear etiology. 6. Alcoholism. 7. Nicotine addiction. Discharge home. Follow up as an outpatient in office next week. MMODL / IJN: [id number] /
== END 2018-07-21 15:04 | disposition home or self-care (01) | DRG 370 ==
LOC: EC 10:31 → INTOOBSV 13:37 → 4MS4W 13:37 → OBSVTOIN 13:37 → 4MS4W 14:05 → OBSVTOIN 07-20 19:38
PROVIDERS: ADMIT Family Medicine; ATTEND Family Medicine
PROC: 0DB78ZX Excision of Stomach, Pylorus, Via Natural or Artificial Opening Endoscopic, Diagnostic (ICD-10-PCS; principal; 2018-07-20 08:00)
DX: B37.81 Candidal esophagitis (principal); B37.0 Candidal stomatitis; B37.89 Other sites of candidiasis; E78.5 Hyperlipidemia, unspecified; E86.0 Dehydration; F10.20 Alcohol dependence, uncomplicated; F17.210 Nicotine dependence, cigarettes, uncomplicated; I10 Essential (primary) hypertension; K29.40 Chronic atrophic gastritis without bleeding; K25.9 Gastric ulcer, unspecified as acute or chronic, without hemorrhage or perforation; K29.80 Duodenitis without bleeding; R13.12 Dysphagia, oropharyngeal phase; F32.9 Major depressive disorder, single episode, unspecified; H53.8 Other visual disturbances; I95.9 Hypotension, unspecified; R68.84 Jaw pain; K21.0 Gastro-esophageal reflux disease with esophagitis; E11.9 Type 2 diabetes mellitus without complications; Z79.82 Long term (current) use of aspirin; Z79.84 Long term (current) use of oral hypoglycemic drugs; Z79.899 Other long term (current) drug therapy; Z90.01 Acquired absence of eye; Z80.3 Family history of malignant neoplasm of breast; Z83.3 Family history of diabetes mellitus
CPT/HCPCS: 36415; 43202; 70491; 71046; 74018; 80048; 80053; 81001; 82308; 82803; 83036; 83605; 84145; 85025; 87040; 87086; 87390; 88305; 96361; 96365; 96375; 99284

== ENCOUNTER 2020-12-14 18:27 | Observation (INO) | payer MEDICARE ==
[2020-12-14 19:02] LABS: Glucose,Whole Blood 449 mg/dL (75-99)
[2020-12-14 19:36] LABS: Appearance,Urine Clear (Clear); Basophils # (A) 0.1 k/uL (0-0.2); Basophils % (A) 1 %; Bilirubin,Urine Negative (Negative); Blood,Urine Negative (Negative); Color,Urine Light Yellow; Eosinophils # (A) 0.4 k/uL (0-0.7); Eosinophils % (A) 2 %; Glucose,Urine (UA) 4+ (Negative); HCT 44.2 % (39.0-53.0); Ketones,Urine Trace (Negative); Leukocyte Esterase,Urine Negative (Negative); Lymphocytes # (A) 1.6 k/uL (1.0-4.8); Lymphocytes % (A) 7 %; MCV 88.3 fL (80.0-100.0); Mean Platelet Volume 7.8; Monocytes % (A) 4 %; Neutrophils # (A) 20.2 k/uL (1.3-7.7); Neutrophils % (A) 87 %; Nitrite,Urine Negative (Negative); Platelet Count 426 k/uL (150-450); Protein,Urine Negative (Negative); RDW 13.2 % (11.5-15.5); Specific Gravity,Urine 1.033 (1.001-1.035); Urobilinogen,Urine <2.0 mg/dL (<2.0); WBC 23.4 k/uL (3.8-10.6)
[2020-12-14] MEDS ORDERED: SODIUM CHLORIDE 0.9% 1,000 ML IV STA (19:37)
[2020-12-14] MEDS ORDERED: SODIUM CHLORIDE 0.9% 500 ML 500 ML IV STA (19:37)
[2020-12-14] MEDS ORDERED: INSULIN REGULAR 100 UNIT/ML VIAL IV ONE (19:38)
--- NOTE | 2020-12-14 19:39 | XR ---
EXAMINATION TYPE: XR chest 2V DATE OF EXAM: 12/14/2020 COMPARISON: 07/16/2018 HISTORY: Sore throat. TECHNIQUE: 2 views FINDINGS: Heart and mediastinum are normal. Lungs are clear of consolidation. There is mild blunting right costophrenic angle. There are no hilar masses. IMPRESSION: Minimal pleural diaphragmatic scarring right lung base. No acute lung disease. No change.
[2020-12-14 19:48] LABS: ALT 51 U/L (4-49); AST 32 U/L (17-59); African American GFR (CKD) >90 (>60 ml/min/1.73 sqM); Albumin 4.4 g/dL (3.5-5.0); Alkaline Phosphatase 76 U/L (38-126); Anion Gap 14 mmol/L; Blood Urea Nitrogen 29 mg/dL (9-20); C Reactive Protein <5.0 mg/L (<10.0); Carbon Dioxide 17 mmol/L (22-30); Chloride 100 mmol/L (98-107); Creatine Kinase 60 U/L (55-170); Glucose 453 mg/dL (74-99); Magnesium 2.1 mg/dL (1.6-2.3); Non-African American GFR(CKD) >90 (>60 ml/min/1.73 sqM); Potassium 5.2 mmol/L (3.5-5.1); Sodium 131 mmol/L (137-145); Total Bilirubin 0.4 mg/dL (0.2-1.3); Total Protein 7.4 g/dL (6.3-8.2)
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
[2020-12-14 20:46] LABS: Glucose,Whole Blood 300 mg/dL (75-99)
[2020-12-14 21:33] LABS: Glucose,Whole Blood 295 mg/dL (75-99)
[2020-12-14] MEDS ORDERED: NALOXONE 0.4 MG/ML 1 ML VIAL IV PRN (21:50)
[2020-12-14 22:50] LABS: Glucose,Whole Blood 298 mg/dL (75-99)
[2020-12-15 02:36] LABS: Glucose,Whole Blood 225 mg/dL (75-99)
[2020-12-15 06:20] LABS: Basophils # (A) 0.1 k/uL (0-0.2); Basophils % (A) 0 %; Eosinophils # (A) 0.1 k/uL (0-0.7); Eosinophils % (A) 0 %; HCT 40.9 % (39.0-53.0); HGB 13.6 gm/dL (13.0-17.5); Lymphocytes % (A) 15 %; MCH 29.3 pg (25.0-35.0); MCHC 33.2 g/dL (31.0-37.0); MCV 88.4 fL (80.0-100.0); Mean Platelet Volume 6.8; Monocytes # (A) 1.2 k/uL (0-1.0); Monocytes % (A) 6 %; Neutrophils # (A) 15.2 k/uL (1.3-7.7); Neutrophils % (A) 77 %; Platelet Count 354 k/uL (150-450); RBC 4.63 m/uL (4.30-5.90); RDW 13.1 % (11.5-15.5); WBC 19.7 k/uL (3.8-10.6)
[2020-12-15 08:08] LABS: Glucose,Whole Blood 148 mg/dL (75-99)
[2020-12-15] MEDS: INSULIN ASPART (NovoLOG) 100 UNIT/ML VIAL SQ SCH ×2 (08:13→13:13)
[2020-12-15] MEDS ORDERED: buPROPion SR 150 MG TABLET.ER PO SCH (09:00)
[2020-12-15] MEDS ORDERED: dexAMETHasone 2 MG TAB PO SCH (09:00)
[2020-12-15] MEDS ORDERED: ATORVASTATIN 20 MG TAB PO SCH (09:00)
[2020-12-15] MEDS ORDERED: ARIPiprazole 2 MG TAB PO SCH (09:00)
[2020-12-15] MEDS ORDERED: metFORMIN 500 MG TAB PO SCH (09:00)
[2020-12-15] MEDS ORDERED: ZINC SULFATE 220 MG CAP PO SCH (09:00)
[2020-12-15] MEDS ORDERED: MULTIVITAMINS, THERA 1 EACH TAB PO SCH (09:00)
[2020-12-15] MEDS ORDERED: lisinopriL 20 MG TAB PO SCH (09:00)
[2020-12-15] MEDS ORDERED: ASPIRIN 325 MG TAB PO SCH (09:00)
[2020-12-15 10:35] LABS: Albumin 4.3 g/dL (3.80-4.90); Albumin/Globulin Ratio 2.39 (1.60-3.17); Anion Gap 7.9 mmol/L (4.00-12.00); BUN/Creat Ratio 26.67 Ratio (12.00-20.00); Carbon Dioxide 24.1 mmol/L (21.6-31.8); Globulin 1.8 g/dL (1.6-3.3); Non-African American GFR(CKD) 95.8 (60.0-200.0); Potassium 4.5 mmol/L (3.5-5.5); Total Bilirubin 0.5 mg/dL (0.2-1.2); Total Protein 6.1 g/dL (6.2-8.2)
[2020-12-15 11:43] LABS: Glucose,Whole Blood 234 mg/dL (75-99)
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
[2020-12-15 15:35] VITALS: BP 103/68; PULSE 69; RESP 17; TEMP 98.4
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
[2020-12-17] MEDS ORDERED: NON FORMULARY DRUG (Semaglutide [Ozempic] 0.25 MG/0.2 ML Pen.Injctr) SQ SCH (09:00)
== END 2020-12-15 16:36 | disposition home or self-care (01) ==
LOC: EC 18:27 → 6NMEDSUR 21:50
PROVIDERS: ADMIT Family Medicine; ATTEND Family Medicine
DX: E11.65 Type 2 diabetes mellitus with hyperglycemia (principal); D72.829 Elevated white blood cell count, unspecified; E78.5 Hyperlipidemia, unspecified; T38.0X5A Adverse effect of glucocorticoids and synthetic analogues, initial encounter; E86.0 Dehydration; U07.1 COVID-19; E87.1 Hypo-osmolality and hyponatremia; E87.5 Hyperkalemia; F17.200 Nicotine dependence, unspecified, uncomplicated; I10 Essential (primary) hypertension; Z79.82 Long term (current) use of aspirin; Z79.84 Long term (current) use of oral hypoglycemic drugs; Z79.899 Other long term (current) drug therapy; Z83.3 Family history of diabetes mellitus; Z90.01 Acquired absence of eye
CPT/HCPCS: 96360; 99285; 36415; 93005; 85379; 80053 ×2; 82550; 82009; 83735; 84484; 85025 ×2; 86140; 81003; 83036; 71046; G0378 ×2; G0480; S0106; J8540; 80320

== ENCOUNTER → 2021-06-29 | Outpatient (CLI) | payer MEDICARE ==
--- NOTE | 2021-07-01 19:35 | CTL ---
EXAMINATION TYPE: CT Low Dose Lung DATE OF EXAM ORDERED: 06/29/2021 HISTORY: 56-year-old male personal history of tobacco use. Lung cancer screening CT DLP: [address] CTDI: 2.18 mGy Automated exposure control for dose reduction was used. SCREENING VISIT: Baseline COMPARISON: 08/22/2014 TECHNIQUE: Low dose computed tomography scan was performed through the chest with coronal sagittal re constructions. CT DIAGNOSTIC QUALITY: Satisfactory FINDINGS: Heart normal size with trace anterior basilar pericardial fluid. Prominent LAD coronary artery calcif ications are present. Aorta normal caliber with conventional arch was a branching anatomy. No thoracic lymphadenopathy by CT size criteria. Stable 3 mm peripheral right upper lobe pulmonary nodule, axial image 101. No suspicious pulmonary nodules. Stable calcified granuloma right midlung. Mild diffuse bronchial wall thickening. Mild strandy atelectasis or scarring at the right base. Redemonstrated calcified granulomas within the liver. 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 IMPRESSION: 1. LungRADS 2, benign. Evidence of prior granulomatous disease. No suspicious pulmonary nodules. 2. Mild diffuse bronchial wall thickening suggesting bronchitis or chronic asthma. 3. LAD coronary calcifications. CT LUNG RAD AND CT CHEST RECOMMENDATION: Lung-Rad 2 Benign Appearance or Behavior: Continue annual sc reening with LDCT in 12 months.
== END | disposition home or self-care (01) ==
LOC: RADCTMAIN 11:40
PROVIDERS: ATTEND Family Medicine
DX: I70.90 Unspecified atherosclerosis (principal); Z87.891 Personal history of nicotine dependence
CPT/HCPCS: 71271

== ENCOUNTER 2022-03-06 21:00 | Observation (INO) | payer MEDICARE ==
[2022-03-06 21:42] LABS: Basophils # (A) 0.2 k/uL (0-0.2); Basophils % (A) 1 %; Eosinophils # (A) 0.3 k/uL (0-0.7); Eosinophils % (A) 2 %; HCT 42.4 % (39.0-53.0); HGB 13.5 gm/dL (13.0-17.5); Lymphocytes # (A) 2.6 k/uL (1.0-4.8); Lymphocytes % (A) 19 %; MCHC 31.9 g/dL (31.0-37.0); MCV 87.7 fL (80.0-100.0); Mean Platelet Volume 6.9; Monocytes % (A) 7 %; Neutrophils # (A) 9.2 k/uL (1.3-7.7); Neutrophils % (A) 69 %; Platelet Count 354 k/uL (150-450); RBC 4.84 m/uL (4.30-5.90); RDW 13.1 % (11.5-15.5); WBC 13.4 k/uL (3.8-10.6)
[2022-03-06 21:51] LABS: INR 0.9 (<1.2); Partial Thromboplastin Time 24.6 sec (22.0-30.0); Prothrombin Time 9.9 sec (9.0-12.0)
[2022-03-06 21:55] LABS: Albumin 4.7 g/dL (3.5-5.0); Calcium 10.7 mg/dL (8.4-10.2); Potassium 4.8 mmol/L (3.5-5.1); Total Bilirubin 0.4 mg/dL (0.2-1.3); Total Protein 7.8 g/dL (6.3-8.2)
[2022-03-06] MEDS ORDERED: AMPICILLIN-SULBACTAM 3 GM in SODIUM CHLORIDE 0.9% 100 ML IVPB STA (22:30)
[2022-03-06] MEDS ORDERED: SODIUM CHLORIDE 0.9% 1,000 ML IV STA (22:30)
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
--- NOTE | 2022-03-06 22:45 | XR ---
EXAMINATION TYPE: XR chest 1V portable DATE OF EXAM: 03/06/2022 COMPARISON: 12/14/2020 HISTORY: Weakness TECHNIQUE: Single view FINDINGS: Heart is normal. Lungs are clear of consolidation. There is slight blunting right costophre hilary angle. There are no hilar masses. Bony thorax is intact. IMPRESSION: There is some pleural reaction right lung base without change. Normal heart.
[2022-03-07] MEDS ORDERED: ACETAMINOPHEN TAB 325 MG TAB PO PRN (01:09)
[2022-03-07] MEDS ORDERED: NALOXONE 0.4 MG/ML 1 ML VIAL IV PRN (01:09)
[2022-03-07] MEDS ORDERED: LACTATED RINGERS 1,400 ML IV SCH (01:30)
[2022-03-07 01:34] LABS: Glucose,Whole Blood 100 mg/dL (75-99)
[2022-03-07] MEDS: SODIUM CHLORIDE 0.9% 1,000 ML IV SCH ×4 (02:55→23:35)
[2022-03-07 03:30] LABS: Appearance,Urine Clear (Clear); Bilirubin,Urine Negative (Negative); Blood,Urine Negative (Negative); Cellular Casts,Urine 1 /lpf (0); Color,Urine Yellow; Glucose,Urine (UA) Negative (Negative); Hyaline Casts,Urine 7 /lpf (0-2); Ketones,Urine Negative (Negative); Leukocyte Esterase,Urine Trace (Negative); Mucus,Urine Rare /hpf; Nitrite,Urine Negative (Negative); PH, Urine 5.5 (5.0-8.0); Protein,Urine Negative (Negative); RBC,Urine 1 /hpf (0-5); Specific Gravity,Urine 1.018 (1.001-1.035); Urobilinogen,Urine <2.0 mg/dL (<2.0); WBC,Urine 2 /hpf (0-5)
[2022-03-07] MEDS: AMPICILLIN-SULBACTAM 3 GM in SODIUM CHLORIDE 0.9% 100 ML IVPB SCH ×3 (06:42→23:35)
[2022-03-07 07:41] LABS: Glucose,Whole Blood 87 mg/dL (75-99)
[2022-03-07] MEDS: INSULIN ASPART (NovoLOG) 100 UNIT/ML VIAL SQ SCH ×4 (07:45→20:13)
[2022-03-07] MEDS: ENOXAPARIN 40 MG/0.4 ML SYRINGE SQ SCH (09:17)
[2022-03-07 12:20] LABS: Glucose,Whole Blood 112 mg/dL (75-99)
[2022-03-07] MEDS: LACTATED RINGERS 1,400 ML IV SCH ×2 (12:28→12:30)
[2022-03-07 16:29] LABS: Glucose,Whole Blood 159 mg/dL (75-99)
--- NOTE | 2022-03-07 18:12 | HP ---
HISTORY AND PHYSICAL This 56-year-old white male presented to the emergency room with generalized weakness, status post multiple dental extractions on Friday. He was sent home without antibiotics. He has been having increasing upper extraction site pain, fatigue, weakness, at which time he was admitted to the hospital for periodontal infection, lactic acidosis and possible sepsis. For home medicines, see list. ALLERGIES NEGATIVE. PAST MEDICAL HISTORY: Diabetes mellitus, dyslipidemia, hypertension. Vital signs stable, afebrile. Cardiovascular S1, S2. Lungs clear. GI soft. Hematology negative Homans. Psych fair mood and affect. He has some swelling and redness in his jaw and gums, for which we are going to get possibly a periodontal consult. He has lactic acid 2.1, sodium 135, potassium 5.8, white count 13.4. ASSESSMENT: Leukocytosis secondary to periodontal infection, possibly sepsis. Continue on Unasyn. Get infectious disease consult, Dr. Hernandez. Prognosis guarded. Please see further orders. Diabetic control before meals and at bedtime. Please see further orders. MMODL / IJN: [id number] /
[2022-03-07 19:15] LABS: Glucose,Whole Blood 114 mg/dL (75-99)
[2022-03-07] MEDS: metFORMIN 500 MG TAB PO SCH (20:19)
[2022-03-07] MEDS: MECLIZINE 12.5 MG TAB PO SCH (20:58)
[2022-03-07] MEDS ORDERED: ARIPiprazole 2 MG TAB PO SCH (21:00)
[2022-03-08 05:58] LABS: Glucose,Whole Blood 195 mg/dL (75-99)
[2022-03-08] MEDS: AMPICILLIN-SULBACTAM 3 GM in SODIUM CHLORIDE 0.9% 100 ML IVPB SCH (06:35)
[2022-03-08] MEDS: INSULIN ASPART (NovoLOG) 100 UNIT/ML VIAL SQ SCH (06:36)
[2022-03-08 07:22] LABS: Basophils # (A) 0.1 k/uL (0-0.2); Basophils % (A) 1 %; Eosinophils # (A) 0.2 k/uL (0-0.7); Eosinophils % (A) 2 %; HCT 40.5 % (39.0-53.0); Lymphocytes # (A) 3.3 k/uL (1.0-4.8); Lymphocytes % (A) 32 %; MCH 28.7 pg (25.0-35.0); MCHC 32.1 g/dL (31.0-37.0); MCV 89.4 fL (80.0-100.0); Monocytes # (A) 0.6 k/uL (0-1.0); Monocytes % (A) 6 %; Neutrophils % (A) 58 %; Platelet Count 337 k/uL (150-450); RBC 4.53 m/uL (4.30-5.90); RDW 13.6 % (11.5-15.5); WBC 10.4 k/uL (3.8-10.6)
[2022-03-08 07:48] LABS: ALT 15 U/L (4-49); AST 23 U/L (17-59); African American GFR (CKD) >90 (>60 ml/min/1.73 sqM); Albumin 3.7 g/dL (3.5-5.0); Alkaline Phosphatase 66 U/L (38-126); Anion Gap 7 mmol/L; Blood Urea Nitrogen 13 mg/dL (9-20); Calcium 9.1 mg/dL (8.4-10.2); Carbon Dioxide 25 mmol/L (22-30); Chloride 106 mmol/L (98-107); Glucose 87 mg/dL (74-99); Non-African American GFR(CKD) >90 (>60 ml/min/1.73 sqM); Potassium 5.2 mmol/L (3.5-5.1); Sodium 138 mmol/L (137-145); Total Bilirubin 0.5 mg/dL (0.2-1.3); Total Protein 6.6 g/dL (6.3-8.2)
[2022-03-08] MEDS: ENOXAPARIN 40 MG/0.4 ML SYRINGE SQ SCH (08:59)
[2022-03-08] MEDS: metFORMIN 500 MG TAB PO SCH (08:59)
[2022-03-08] MEDS: MECLIZINE 12.5 MG TAB PO SCH (09:00)
[2022-03-08] MEDS ORDERED: MULTIVITAMINS, THERA 1 EACH TAB PO SCH (09:00)
[2022-03-08] MEDS ORDERED: CHOLECALCIFEROL 125 MCG (5000 IU) TABLET PO SCH (09:00)
[2022-03-08] MEDS ORDERED: lisinopriL 10 MG TAB PO SCH (09:00)
[2022-03-08] MEDS ORDERED: buPROPion SR 150 MG TABLET.ER PO SCH (09:00)
[2022-03-08] MEDS ORDERED: ASPIRIN 325 MG TAB PO SCH (09:00)
[2022-03-08] MEDS: SODIUM CHLORIDE 0.9% 1,000 ML IV SCH (09:00)
[2022-03-08 09:04] VITALS: BP 131/78; PULSE 63; RESP 16; TEMP 97.5
--- NOTE | 2022-03-08 19:04 | P.DS ---
Providers Date of admission: 03/07/22 01:11 Expected date of discharge: 03/08/22 Attending physician: Mane Alvarez Consults: 03/07/22 16:55 Consult Physician Routine Consulting Provider: Janet Hernandez Consult Reason/Comments: peridontal infection Do you want consulting provider notified?: Yes Primary care physician: Mane Alvarez [facility] Course: Presenting complaint: Dental pain Hospital course: I'm rounding for Dr. Mane Alvarez. Patient had several teeth extracted on 5 days ago. Was having significant pain. Patient was started on IV Unasyn. Patient not able to tolerate a soft diet. No fever no chills. Pain is better controlled. Patient advised to rinse his mouth after every meal. Use warm water and salt swish and gargle 4 times a day. Patient to avoid extreme: Extreme hot liquids. And follow-up with his dentist. We will complete a course of oral Augmentin. Discussion and discharge planning more than 35 minutes On exam: 37.5, 63, 16, 130/78, 96% room air Oral cavity: Area rawness at the site of extracted teeth Lungs: Clear Cardiovascular: First second sounds normal Psychiatry: AO 3, mood affect normal Investigations: White count 10.40 globin 13 platelets 337 creatinine 0.89 Blood culture: Negative Assessment and plan: -Possible infection at the site of tooth extraction Received IV Unasyn. Complete Augmentin for 5 days -Diabetes mellitus type 2, oral hypoglycemic O's and take 0.5 mg subcu on Friday metformin thousand milligrams twice a day -Hyperlipidemia Zocor 40 mg daily at bedtime -Essential hypertension Prinivil 10 mg a day Disposition: Home - Plan - Discharge Summary Discharge Rx Participant: No New Discharge Prescriptions: New Amoxicillin/Potassium Clav [Augmentin 875-125 Tablet] 1 tab PO Q12HR 1 Days #10 tab Continue metFORMIN HCL [Glucophage] 1,000 mg PO BID buPROPion HCL [Bupropion HCl Sr] 150 mg PO DAILY Simvastatin 40 mg PO HS Aspirin EC [Ecotrin] 325 mg PO DAILY Semaglutide [Ozempic] 0.5 mg SQ MCQUEEN ARIPiprazole [Abilify] 2 mg PO HS Lisinopril [Prinivil] 10 mg PO DAILY Multivit-Min/Folic/Vit K/Lycop [Men's Multivitamin Tablet] 1 tab PO DAILY Cholecalciferol (Vitamin D3) [Vitamin D3 (125 MCG = 5,000 IU)] 125 mcg PO DAILY Meclizine [Antivert] 12.5 mg PO Q8HR Discharge Medication List buPROPion HCL [Bupropion HCl Sr] 150 mg PO DAILY 01/17/15 [History] metFORMIN HCL [Glucophage] 1,000 mg PO BID 01/17/15 [History] Simvastatin 40 mg PO HS 06/03/17 [History] Aspirin EC [Ecotrin] 325 mg PO DAILY 07/16/18 [History] ARIPiprazole [Abilify] 2 mg PO HS 12/14/20 [History] Semaglutide [Ozempic] 0.5 mg SQ MCQUEEN 12/14/20 [History] Cholecalciferol (Vitamin D3) [Vitamin D3 (125 MCG = 5,000 IU)] 125 mcg PO DAILY 03/07/22 [History] Lisinopril [Prinivil] 10 mg PO DAILY 03/07/22 [History] Meclizine [Antivert] 12.5 mg PO Q8HR 03/07/22 [History] Multivit-Min/Folic/Vit K/Lycop [Men's Multivitamin Tablet] 1 tab PO DAILY 03/07/22 [History] Amoxicillin/Potassium Clav [Augmentin 875-125 Tablet] 1 tab PO Q12HR 1 Days #10 tab 03/08/22 [Rx] Follow up Appointment(s)/Referral(s): Mane Alvarez MD [Primary Care Provider] - 1-2 days Patient Instructions/Handouts: Sepsis (DC) Activity/Diet/Wound Care/Special Instructions: warm water with salt swist spit every 4 hours and after meals soft food no iced liquids Discharge Disposition: HOME SELF-CARE
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
== END 2022-03-08 12:00 | disposition home or self-care (01) ==
LOC: EC 21:00 → INTOOBSV 03-07 01:11 → 3SCARD 03-07 01:11 → UNDODISIN 03-08 12:00
PROVIDERS: ADMIT Family Medicine; ATTEND Family Medicine
DX: D72.829 Elevated white blood cell count, unspecified (principal); R00.0 Tachycardia, unspecified; R53.83 Other fatigue; R42 Dizziness and giddiness; R53.1 Weakness; E11.9 Type 2 diabetes mellitus without complications; E78.5 Hyperlipidemia, unspecified; I10 Essential (primary) hypertension; N17.9 Acute kidney failure, unspecified; I95.9 Hypotension, unspecified; F17.200 Nicotine dependence, unspecified, uncomplicated; K08.89 Other specified disorders of teeth and supporting structures; E87.2 Acidosis; F32.A Depression, unspecified; H53.8 Other visual disturbances; Z20.822 Contact with and (suspected) exposure to COVID-19; Z87.442 Personal history of urinary calculi; Z79.899 Other long term (current) drug therapy; Z79.84 Long term (current) use of oral hypoglycemic drugs; Z79.82 Long term (current) use of aspirin; Z71.9 Counseling, unspecified; Z80.3 Family history of malignant neoplasm of breast; Z83.3 Family history of diabetes mellitus
CPT/HCPCS: 96361 ×4; 96366 ×2; 96372 ×2; 96365; 99291; 36415 ×2; 93005; 80053 ×2; 83605 ×2; 83735; 84484; 85025 ×2; 85610; 85730; 81001; 87040; 83036; 87635; 71045; G0378 ×2; S0106; J1650 ×2; J0295 ×3

== ENCOUNTER → 2022-03-15 | Outpatient (CLI) | payer MEDICARE ==
[~2022-03-15] MED LIST: SODIUM CHLORIDE 0.9% 1,000 ML IV SCH; SODIUM CHLORIDE 0.9% 500 ML 500 ML in EMPTY BAG 1 BAG IV PRN
[2022-03-15 07:58] VITALS: BP 120/74; PULSE 98; RESP 18; TEMP 97.5
== END | disposition home or self-care (01) ==
LOC: PROCWHC3 07:24
PROVIDERS: ATTEND Family Medicine
DX: E86.0 Dehydration (principal)
CPT/HCPCS: 96360; 96361

== ENCOUNTER → 2022-07-01 | Outpatient (CLI) | payer MEDICARE ==
--- NOTE | 2022-07-01 10:45 | CTL ---
EXAMINATION TYPE: CT Low Dose Lung DATE OF EXAM ORDERED: 07/01/2022 HISTORY: Personal history of tobacco use. Lung cancer screening CT DLP: 97.[address] CTDI: 2.7 mGy Automated exposure control for dose reduction was used. SCREENING VISIT: Follow-up COMPARISON: CT Low Dose Lung 06/29/2021 TECHNIQUE: Low dose computed tomography scan was performed through the chest at 1 mm thick sections a nd reconstructed images in multiple planes at 1 mm and [address] DIAGNOSTIC QUALITY: Satisfactory FINDINGS: LUNG NODULES: Right upper lobe 3 minimal calcified granuloma is stable. No new or enlarging pulmonary nodules. Previously demonstrated right upper lobe peripheral nodule is not appreciated. 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 Supraclavicular region: None Other: Scattered calcified granulomas within the liver. IMPRESSION: No new or enlarging pulmonary nodules. CT LUNG RAD AND CT CHEST RECOMMENDATION: Lung-Rad 1 Negative: Continue annual screening with LDCT in 12 months. S Modifier (other clinically significant findings): None
== END | disposition home or self-care (01) ==
LOC: RADCTMAIN 09:28
PROVIDERS: ATTEND Family Medicine
DX: Z12.2 Encounter for screening for malignant neoplasm of respiratory organs (principal); Z87.891 Personal history of nicotine dependence
CPT/HCPCS: 71271

== ENCOUNTER 2022-09-10 06:16 | Emergency (ER) | payer MEDICARE ==
[2022-09-10 06:25] VITALS: BP 149/91; PULSE 77; RESP 18; TEMP 98.2
--- NOTE | 2022-09-10 07:05 | XR ---
EXAMINATION TYPE: XR elbow complete RT DATE OF EXAM: 09/10/2022 COMPARISON: NONE HISTORY: Fall. Pain TECHNIQUE: 3 views FINDINGS: There is no fracture nor dislocation. Joint spaces are normal. No sign of a joint effusion. IMPRESSION: Negative right elbow exam.
--- NOTE | 2022-09-10 07:09 | XR ---
EXAMINATION TYPE: XR ribs RT w pa chest xray DATE OF EXAM: 09/10/2022 CLINICAL HISTORY: Fall injury with chest and right rib pain. TECHNIQUE: Single frontal view of the chest is obtained. A frontal and oblique images of the right-si ded ribs. COMPARISON: Prior chest x-ray March 06, 2022 FINDINGS: There is some chronic parenchymal change bilaterally without suspicious focal air space op acity, pleural effusion, or pneumothorax seen. The cardiac silhouette size is stable and within norm al limits. The osseous structures are intact. There is some bridging involving the posterior lateral right sixth and seventh ribs. No acute displac ed right-sided rib fractures are seen. Overlying soft tissue is unremarkable. IMPRESSION: 1. No acute cardiopulmonary process. 2. No acute displaced right-sided rib fractures.
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
[2022-09-10] MEDS ORDERED: ACET/COD 300 MG/30 MG STARTER PACK 6 TAB BTL PO STA (07:23)
== END 2022-09-10 07:46 | disposition home or self-care (01) ==
LOC: EC 06:16
DX: S20.211A Contusion of right front wall of thorax, initial encounter (principal); S50.01XA Contusion of right elbow, initial encounter; E11.9 Type 2 diabetes mellitus without complications; E78.5 Hyperlipidemia, unspecified; I10 Essential (primary) hypertension; F32.A Depression, unspecified; F17.200 Nicotine dependence, unspecified, uncomplicated; Z79.84 Long term (current) use of oral hypoglycemic drugs; Z79.02 Long term (current) use of antithrombotics/antiplatelets; Z79.4 Long term (current) use of insulin; W01.198A Fall on same level from slipping, tripping and stumbling with subsequent striking against other object, initial encounter
CPT/HCPCS: 99284

== ENCOUNTER → 2023-07-03 | Outpatient (CLI) | payer MEDICARE ==
--- NOTE | 2023-07-03 20:28 | CTL ---
EXAMINATION TYPE: CT Low Dose Lung DATE OF EXAM ORDERED: 07/03/2023 HISTORY: . Lung cancer screening CT DLP: 99.20 mGycm Automated exposure control for dose reduction was used. SCREENING VISIT: Subsequent, second year post pinning COMPARISON: 07/01/2022 TECHNIQUE: Low dose computed tomography scan was performed through the chest at 1 mm thick sections a nd reconstructed images in the coronal plane at [address] DIAGNOSTIC QUALITY: Satisfactory FINDINGS: LUNG NODULES: None. 1. There is a small calcification in the periphery of the right midlung. Series 4 image 117.. LUNGS: COPD: Severity: None Fibrosis: Severity: None Lymph nodes: None Other findings: None RIGHT PLEURAL SPACE: Effusion: None Calcification: None Thickening: None Pneumothorax: None LEFT PLEURAL SPACE: Effusion: None Calcification: None Thickening: None Pneumothorax: None HEART: Heart Size: Normal Coronary calcification: Moderate Pericardial effusion: Mild OTHER FINDINGS: Upper abdomen: Calcified granulomas are within the liver. Bony thorax: Normal Supraclavicular region: Normal Other: Ascending thoracic aorta at the main pulmonary artery is 3.9 cm. Main pulmonary artery at the bifurcation is 2.4 cm. IMPRESSION: No suspicious findings to suggest primary or metastatic neoplasm FOLLOW UP CT CHEST RECOMMENDATION: Follow-up low-dose CT chest one year CT LUNG RAD: Lung-Rad 2 Benign Appearance or Behavior
== END | disposition home or self-care (01) ==
LOC: RADCTMAIN 09:22
PROVIDERS: ATTEND Family Medicine
DX: Z12.2 Encounter for screening for malignant neoplasm of respiratory organs (principal); F17.210 Nicotine dependence, cigarettes, uncomplicated
CPT/HCPCS: 71271

== ENCOUNTER 2024-07-13 13:20 | Emergency (ER) | payer MEDICARE ==
[2024-07-13] MEDS ORDERED: SODIUM CHLORIDE 0.9% 1,000 ML BAG ONE (17:50)
--- NOTE | 2024-08-10 08:15 | XR ---
Patient: Jabier Villa Ordering Physician: Unknown, Unknown ID: [id number] Phone, Pager: Phone: N /A Pager: N/A : 1965 Age/Gender: 59Y, M Primary Location: N/A Procedure: XR chest 2V Study Da te: 07/13/2024 5:57:00 PM EXAMINATION TYPE: XR chest 2V DATE OF EXAM: 07/13/2024 6:40 PM CLINICAL INDICATION: Patient has high blood sugar. COMPARISON: 07/16/2010. TECHNIQUE: XR chest 2V Frontal view of the chest. FINDINGS: Lungs/Pleura: There is no evidence of pleural effusion, focal consolidation, or pneumothorax. Pulmonary vascularity: Unremarkable. Heart/mediastinum: Cardiomediastinal silhouette is unremarkable. Musculoskeletal: No acute osseous pathology. Other findings: None IMPRESSION: No acute cardiopulmonary disease/process.
== END 2024-07-13 21:30 | disposition home or self-care (01) ==
LOC: EC 13:20
DX: R73.9 Hyperglycemia, unspecified (principal)
CPT/HCPCS: 71046; 96360; 96361; 99284

== ENCOUNTER → 2024-12-14 | Outpatient (CLI) | payer MEDICARE ==
[2024-12-14 14:36] LABS: Appearance,Urine Clear (Clear); Bilirubin,Urine Negative (Negative); Blood,Urine Negative (Negative); Calcium Oxalate Crystals,Urine Moderate /hpf; Color,Urine Yellow; Glucose,Urine (UA) 2+ (Negative); Ketones,Urine Negative (Negative); Leukocyte Esterase,Urine Negative (Negative); Mucus,Urine Many /hpf; Nitrite,Urine Negative (Negative); PH, Urine 5.5 (5.0-8.0); Protein,Urine 1+ (Negative); RBC,Urine 36 /hpf (0-5); Specific Gravity,Urine 1.032 (1.001-1.035); WBC,Urine 2 /hpf (0-5)
[2024-12-14 15:04] LABS: Influenza A Not Detected (Not Detectd); Influenza B Not Detected (Not Detectd); RSV Not Detected (Not Detectd)
[2024-12-14 19:13] LABS: ALT 17 U/L (10-49); AST 23 U/L (14-35); Albumin 4.2 g/dL (3.8-4.9); Albumin/Globulin Ratio 1.35 Ratio (1.60-3.17); Alkaline Phosphatase 130 U/L (41-126); BUN/Creat Ratio 11.82 Ratio (12.00-20.00); Calcium 9.9 mg/dL (8.7-10.3); Carbon Dioxide 26.3 mmol/L (21.6-31.8); Chloride 104 mmol/L (96-109); Globulin 3.1 g/dL (1.6-3.3); Glucose 196 mg/dL (70-110); Potassium 4.5 mmol/L (3.5-5.5); Sodium 140 mmol/L (135-145); Total Bilirubin 0.2 mg/dL (0.3-1.2); Total Protein 7.3 g/dL (6.2-8.2)
== END | disposition home or self-care (01) ==
LOC: LABWHC1 13:45
PROVIDERS: ATTEND Family Medicine
DX: E11.9 Type 2 diabetes mellitus without complications (principal); B89 Unspecified parasitic disease; Z79.01 Long term (current) use of anticoagulants
CPT/HCPCS: 36415; 80053; 81001; 83036; 87636